=== PATIENT | male | born 1945 | race Caucasian/White ===

== ENCOUNTER 2016-10-12 17:41 | Emergency (ER) | payer SELFPAY ==
[~2016-10-12] VITALS: Ht 177.8 cm; Wt 90.0 kg
[2016-10-12] MEDS ORDERED: LORAZEPAM 0.5MG TABLET PO ONE (19:00)
[2016-10-12 19:07] LABS: BASOPHILS % 0.4 % (0.0-2.0); EOSINOPHILS % 3.5 % (0.0-5.0); HEMATOCRIT. 31.1 % (42.0-52.0); HEMOGLOBIN. 10.5 g/dL (14.0-18.0); LYMPHOCYTES % 46.8 % (20.0-50.0); MEAN CORPUSCULAR HEMOGLOBIN 32.9 pg (28.0-32.0); MEAN CORPUSCULAR VOLUME 97.3 fL (80.0-94.0); MEAN PLATELET VOLUME 9.9 fl (7.4-10.4); MONOCYTES % 6.8 % (2.0-8.0); NEUTROPHILS % 42.5 % (40.0-76.0); PLATELET 131 x1000/uL (130-400); RED CELL DISTRIBUTION WIDTH 13.9 % (11.6-14.6)
[2016-10-12 19:10] LABS: INR 1.1; PROTHROMBIN TIME 11.8 sec (9.4-11.6)
[2016-10-12 19:13] LABS: CHLORIDE 109 mEq/L (98-107)
[2016-10-12 19:17] LABS: CARBON DIOXIDE 29 mEq/L (21-32)
[2016-10-12 19:22] LABS: TROPONIN I < 0.02 ng/mL (0.00-0.04)
[2016-10-12 21:23] VITALS: BP 122/74
== END 2016-10-12 21:28 | disposition home or self-care (01) ==
LOC: ER 18:08
DX: F41.9 Anxiety disorder, unspecified (principal); I10 Essential (primary) hypertension; E11.9 Type 2 diabetes mellitus without complications
CPT/HCPCS: 36415; 71010; 80048; 83880; 84484; 85025; 85610; 93005; 99285; Z7610